=== PATIENT | female | born 1985 | race Caucasian/White ===

== ENCOUNTER 2019-03-07 09:23 | Outpatient (CLI) | payer OTHER ==
--- NOTE | 2019-03-07 10:17 | ULT ---
EXAM: OB ultrasound COMPARISON: None HISTORY: female. Evaluate size, dates, and anatomy. TECHNIQUE: Multiplanar grayscale and color Doppler transabdominal sonographic images are obtained. FINDINGS: There is a single intrauterine gestation in cephalic presentation. Cardiac Doppler demonstr ates heart tones with a heart rate of 155 beats per minute. The placenta is located posteriorly without evidence of placenta previa. There is a normal amount of amniotic fluid with an a mniotic fluid index of 14.1 centimeters. Cervix is difficult to entirely delineate but measures approximately 3 cm in length.. biometry measurements: BPD 5.3 cm -- 22 weeks 1 day HC 18.82 cm -- 21 weeks 1 day AC 16.01 cm -- 21 weeks 1 day FL 3.21 cm -- 20 weeks The estimated gestational age by ultrasound is 21 weeks 1 day with an KAM on07/17/2019. Gestational age by the last menstrual period is 20 weeks 4 days. The estimated weight by ultrasound is 372 g (13 ounces). This represents 53 percentile for feta l weight. A 4 chambered heart is visualized. The cerebellum, visualized portions of the spine, kidneys, u rinary bladder, and cord insertion demonstrate a normal sonographic appearance. A three-vessel cord is not visualized, but there is flow on either side of the urinary bladder sugges ting a three-vessel cord.. No anomalies are seen. IMPRESSION: 1. Single intrauterine gestation in cephalic presentation with heart tones documented. Estimat ed gestational age by ultrasound is 21 weeks and 1 day. 2. Estimated weight is 372 g (13 ounces). 3. Amniotic fluid index is 14.1 centimeters.
== END 2019-03-07 09:24 | disposition home or self-care (01) ==
LOC: BICULT 09:23
PROVIDERS: ATTEND Family Medicine
DX: O09.92 Supervision of high risk pregnancy, unspecified, second trimester (principal); O09.512 Supervision of elderly primigravida, second trimester; Z3A.21 21 weeks gestation of pregnancy
CPT/HCPCS: 76805

== ENCOUNTER 2019-06-21 09:53 | Day surgery (SDC) | payer OTHER ==
[2019-06-21 10:22] VITALS: BP 134/79; TEMP 98.2; BMI 42.5
--- NOTE | 2019-06-21 11:25 | PDOC.EVN ---
Event Note - Event Note Event Note: [facility] oncall Asked to review BPP and NST. This is my review of those items/ This is not a full triage assessment. Indication for BPP and NST: HX CS x3 and GDM. BPP verbal was 8/8 with normal JULIO. NST is reactive at 35 weeks. OK for outpatient care. I have seen her in Triage B
--- NOTE | 2019-06-21 11:37 | ULT ---
ULTRASOUND BIOPHYSICAL PROFILE: DATE: 06/21/2019 HISTORY: 33-year-old female in third trimester of , advanced maternal age. FINDINGS: breathin tone: 2 movement: 2 Amniotic fluid volume: 2 lie: Breech Placenta: Right lateral. No placenta previa. heart rate: 145 bpm JULIO: 12 cm. IMPRESSION: Normal biophysical profile score of 8 out of 8, excluding the nonstress test.
== END 2019-06-21 11:40 | disposition home health service, planned readmission (86) ==
LOC: L&D/OP 09:53
PROVIDERS: ATTEND Family Medicine
DX: O09.523 Supervision of elderly multigravida, third trimester (principal); Z3A.35 35 weeks gestation of pregnancy; Z98.890 Other specified postprocedural states
CPT/HCPCS: 59025; 76819; 99282

== ENCOUNTER 2019-07-05 09:35 | Inpatient (IN) | payer OTHER ==
[2019-07-05 10:52] LABS: #Eosinphils 0.1 thou/uL (0.0-0.7); #Lymphocytes 2.1 thou/uL (1.20-3.40); #Monocytes 0.7 thou/uL (0.11-0.59); %Basophils 0.2 % (0.0-1.0); %Eosinophils 1.6 % (0.0-10.0); %Lymphocytes 23.1 % (21.0-51.0); %Monocytes 7.8 % (0.0-10.0); %Neutrophils 67.3 % (42.0-75.0); Hemoglobin 12.9 g/dL (12.0-16.0); Mean Corpuscular HGB CONC 34.6 g/dL (32.0-36.0); Mean Corpuscular Hemoglobin 29.7 pg (27.0-31.0); Mean Corpuscular Volume 85.9 fL (78.0-98.0); Mean Platelet Volume 7.8 fL (7.4-10.4); Platelet Count 194 thou/uL (130-400); RBC Distribution Width 12.3 % (11.5-14.5); Red Blood Cell (RBC) Count 4.33 mill/uL (4.20-5.40)
[2019-07-05 10:55] LABS: Creatinine, Urine 71.87 mg/dL (47-110)
[2019-07-05 11:17] VITALS: BMI 42.5
[2019-07-05 11:20] LABS: ALT (SGPT) 15 U/L (8-55); AST (SGOT) 14 U/L (5-34); Albumin 3.2 g/dL (3.5-5.0); Alkaline Phosphatase 165 U/L (40-110); Anion Gap 12 mmol/L (10-20); BUN (Urea Nitrogen) 9 mg/dL (7.0-18.7); Bilirubin, Total 0.3 mg/dL (0.2-1.2); Calc. Creatinine Clearance 195 mL/min (70-130); Calcium 9.3 mg/dL (7.8-10.44); Carbon Dioxide 22 mmol/L (22-29); Chloride 106 mmol/L (98-107); Estimated GFR-MDRD Greater than 90; Globulin 3.7 g/dL (2.4-3.5); Glucose 93 mg/dL (70-105); Potassium 3.7 mmol/L (3.5-5.1); Protein, Total 6.9 g/dL (6.0-8.3); Sodium 136 mmol/L (136-145)
[2019-07-05 11:35] LABS: HBSAg Index 0.31 S/CO (0-0.99); HIV (1/2) Antibody/Antigen Non-Reactive (NonReactive); HIV 1/2 INDEX 0.12 S/CO (<1.00); Hep B Surf Ag Non-Reactive S/CO (NonReactive)
[2019-07-05 11:36] LABS: Syphilis Antibody Nonreactive (Nonreactive); Syphilis Antibody Index 0.11 S/CO (<1.00 Non-Reactive)
--- NOTE | 2019-07-05 13:10 | ULT ---
OB ULTRASOUND FOR BIOPHYSICAL PROFILE: Umbilical artery Doppler study performed with Doppler, spectral analysis, and velocities with resisti ve index calculation. INDICATION: Assess well being. FINDINGS: A 37-week 5-day clinical age. BIOPHYSICAL PROFILE: tone: Score 2. breathing: Score 2. movement: Score 2. Amniotic fluid: Score 2. Total Score: 8/8. Position: Breech. Placenta: Anterior. Amniotic fluid: Appears adequate. JULIO is low normal recorded at 8.2 cm. heart rate: 152 b.p.m. UMBILICAL ARTERY DOPPLER: Umbilical artery at insertion: Resistive index: 0.63. Pulsatility index: 1.04. Umbilical artery mid cord: Resistive index: 0.58. Pulsatility index: 0.93. Umbilical artery Doppler at placenta insertion: Resistive index: 0.64. Pulsatility index: 1.11. POS: AGW
[2019-07-05] MEDS ORDERED: Bicitra 30 ML UDCUP ONE (18:18)
[2019-07-05] MEDS ORDERED: Azithromycin 500 MG VIAL ONE (18:20)
[2019-07-05] MEDS ORDERED: Butorphanol Tartrate 1 MG/ML VIAL SLOW IVP PRN (18:21)
[2019-07-05] MEDS ORDERED: Ondansetron PF 4 MG/2 ML Vial IVP PRN ×2 (18:21→18:57)
[2019-07-05] MEDS ORDERED: Promethazine HCl 25 MG/ML VIAL IM PRN ×2 (18:21→18:57)
[2019-07-05] MEDS ORDERED: hydrALAZINE 20 MG/ML VIAL SLOW IVP PRN (18:21)
[2019-07-05] MEDS ORDERED: Ondansetron PF 4 MG/2 ML Vial ONE (18:28)
[2019-07-05] MEDS ORDERED: Oxytocin 10 UNITS/ML VIAL ONE (18:28)
[2019-07-05] MEDS ORDERED: MORPHINE 5 MG/10 ML PF VIAL ONE (18:29)
[2019-07-05] MEDS ORDERED: Bicitra 30 ML UDCUP PO SCH (18:30)
[2019-07-05] MEDS ORDERED: CEFAZOLIN 2 GM in Premix Bag 1 BAG IVPB SCH (18:30)
[2019-07-05] MEDS ORDERED: Azithromycin 500 MG in Sodium Chloride 0.9% 250 ML 250 ML IVPB SCH (18:30)
[2019-07-05] MEDS ORDERED: Lidocaine 1% PF 5 ML VIAL ONE (18:44)
[2019-07-05] MEDS ORDERED: diphenhydrAMINE 50 MG/ML VIAL IVP PRN (18:57)
[2019-07-05] MEDS ORDERED: L&D-Morphine 4 MG/ML VIAL SLOW IVP PRN (18:57)
[2019-07-05] MEDS ORDERED: Naloxone HCl 0.4 mg/ml Vial IVP PRN ×2 (18:57)
[2019-07-05] MEDS ORDERED: HYDROmorphone 2 MG/ML VIAL SLOW IVP PRN (18:57)
[2019-07-05] MEDS ORDERED: Ketorolac Tromethamine 30 MG/ML VIAL IVP PRN (18:57)
[2019-07-05] MEDS ORDERED: Meperidine HCl/PF 25 MG/ML VIAL SLOW IVP PRN (18:57)
[2019-07-05] MEDS ORDERED: Promethazine HCl 25 MG SUPP PR PRN (18:57)
[2019-07-05] MEDS ORDERED: Naloxone HCl 0.4 mg/ml Vial IV PRN (18:57)
[2019-07-05] MEDS ORDERED: Ondansetron HCl/PF 4 MG/2 ML Vial IVP PRN (18:57)
[2019-07-05] MEDS ORDERED: PHENYLEPHRINE-NS 100 MCG/ML 10 ML SYRINGE ONE ×2 (18:58→19:34)
[2019-07-05] MEDS ORDERED: EPHEDRINE 25 MG/5 ML SYRINGE ONE (18:58)
[2019-07-05] MEDS ORDERED: Communication Order-Pharmacy FS SCH (19:00)
[2019-07-05] MEDS ORDERED: Ketorolac Tromethamine 30 MG/ML VIAL IVP SCH (19:00)
[2019-07-05] MEDS ORDERED: Misoprostol 200 MCG TAB ONE (19:14)
[2019-07-05] MEDS ORDERED: Methylergonovine 0.2 MG/ML VIAL ONE (19:14)
[2019-07-05] MEDS ORDERED: Carboprost 250 MCG/ML AMP ONE ×2 (19:14→19:17)
[2019-07-05] MEDS ORDERED: Tranexamic Acid 1,000 MG/10 ML VIAL ONE ×3 (19:17→20:50)
[2019-07-05] MEDS: Lactated Ringer's 1,000 ML IV SCH (20:30)
--- NOTE | 2019-07-05 20:33 | OP ---
DATE OF PROCEDURE: 07/05/2019 TIME OF SERVICE: 193 Please see complete operative note dictated by Dr. Cavanaugh. Briefly, the patient's history was that she was multiparous 37 weeker, pre-R, C-sections x3, presented in labor. She underwent a repeat section with a history of dense adhesions to the anterior abdominal wall. Dr. Cavanaugh encountered adhesions to the rectus abdominis on the way in and performed a low-transverse hysterotomy. After delivering the baby and obtaining cord blood sample, upon removing the placenta, he noted the lower uterine segment to be very thin along the right margin and the placenta to be densely adherent. I was called for intraoperative consultation. When I presented, the placenta had been dissected off pretty well completely except for an area of maybe about 5 cm diameter along the right aspect of the hysterotomy incision just above and lateral to it. I scrubbed in and inspected. I did not really see any vessels coming through the very thin lower uterine segment and did not suspect true invasion, rather more just abnormally adherent placenta. It dissected free and was removed. The uterus was curetted out and noted to be firm. There was not excessive bleeding from the placental bed. I identified the margins of the hysterotomy, which on the right especially were 2-3 cm above the level of the apparent bladder. It was closed from right to left using a running locking #1 Monocryl suture in a single layer. On the left side, the hysterotomy extended down slightly, but did seem to be well above the level of the bladder. It was closed in the usual manner. There were some areas of denuding on the uterine musculature superior to the left side of the hysterotomy from its dissection off the densely adherent rectus and this was rendered hemostatic using running locking Monocryl suture as well as one application of FloSeal with pressure held by a moist lap sponge for 3 minutes. After this was done, reinspection revealed good hemostasis throughout. The uterus was noted to be continually firm. There was no bleeding coming through the hysterotomy and was not boggy. No hemorrhage was suspected. Case was turned back over to Dr. Cavanaugh as the rectus was easily identifiable as well as the fascia and he continued and finished the case, closing the fascia . I remain available for consultation if any signs or symptoms of anemia or continued hemorrhage are noted. Job ID: [id number]
[2019-07-05] MEDS ORDERED: NS / Oxytocin 40 units/1000ml 1,000 ML ONE (21:55)
[2019-07-06 02:44] LABS: Mean Corpuscular HGB CONC 34.6 g/dL (32.0-36.0); Mean Corpuscular Hemoglobin 29.7 pg (27.0-31.0); Mean Corpuscular Volume 85.8 fL (78.0-98.0); Platelet Count 181 thou/uL (130-400); RBC Distribution Width 12.4 % (11.5-14.5); Red Blood Cell (RBC) Count 3.02 mill/uL (4.20-5.40); White Blood Cell (WBC) Count 23.5 thou/uL (4.8-10.8)
[2019-07-06] MEDS ORDERED: hydrALAZINE 20 MG/ML VIAL SLOW IVP PRN (02:56)
[2019-07-06] MEDS ORDERED: Bisacodyl 10 MG SUPP PR PRN (02:56)
[2019-07-06] MEDS ORDERED: Promethazine HCl 25 MG/ML VIAL IM PRN (02:56)
[2019-07-06] MEDS ORDERED: NS / Oxytocin 40 units/1000ml 1,000 ML IV SCH (02:56)
[2019-07-06] MEDS ORDERED: Acetaminophen 325 MG TAB PO PRN (02:56)
[2019-07-06] MEDS ORDERED: Meperidine HCl/PF 25 MG/ML VIAL IM PRN (02:56)
[2019-07-06] MEDS ORDERED: HYDROcodone/Acetaminophen 5/325 mg Tablet PO PRN (02:56)
[2019-07-06] MEDS ORDERED: Adacel (T-DAP) 0.5 ML SYRINGE IM ONE (02:56)
[2019-07-06] MEDS ORDERED: Ondansetron PF 4 MG/2 ML Vial IVP PRN (02:56)
[2019-07-06] MEDS ORDERED: diphenhydrAMINE 25 MG CAP PO PRN (02:56)
[2019-07-06] MEDS ORDERED: Lanolin Ointment 7 GM TUBE TOP PRN (02:56)
[2019-07-06] MEDS ORDERED: Docusate Calcium (SURFAK) 240 MG CAP PO SCH (03:45)
[2019-07-06] MEDS ORDERED: Sodium Chloride 0.9% 10 ML ONE ×2 (03:59→11:42)
[2019-07-06] MEDS: Lactated Ringer's 1,000 ML IV SCH (05:55)
[2019-07-06] MEDS: Ketorolac Tromethamine 30 MG/ML VIAL IVP SCH ×2 (06:20→11:46)
[2019-07-06] MEDS ORDERED: Lactated Ringer's 1,000 ML IV SCH (08:30)
[2019-07-06 08:37] LABS: Hemoglobin 7.5 g/dL (12.0-16.0); Mean Corpuscular HGB CONC 34.4 g/dL (32.0-36.0); Mean Corpuscular Hemoglobin 29.8 pg (27.0-31.0); Mean Corpuscular Volume 86.6 fL (78.0-98.0); Mean Platelet Volume 8.1 fL (7.4-10.4); Platelet Count 154 thou/uL (130-400); RBC Distribution Width 12.5 % (11.5-14.5); Red Blood Cell (RBC) Count 2.53 mill/uL (4.20-5.40); White Blood Cell (WBC) Count 14.9 thou/uL (4.8-10.8)
[2019-07-06] MEDS ORDERED: Ketorolac Tromethamine 30 MG/ML VIAL IVP SCH (09:00)
[2019-07-06] MEDS: Prenatal Vitamin 1 TAB PO SCH (09:25)
[2019-07-06] MEDS: Ferrous Sulfate 325 MG TAB PO SCH ×2 (09:25→16:54)
[2019-07-06] MEDS: Simethicone Chewable 80 MG TAB PO PRN ×2 (15:37→20:02)
[2019-07-06] MEDS: Ibuprofen 800 MG TAB PO SCH (16:54)
[2019-07-06] MEDS ORDERED: Ibuprofen 800 MG TAB PO SCH (18:00)
[2019-07-06] MEDS: HYDROcodone/Acetaminophen 5/325 mg Tablet PO PRN (20:01)
[2019-07-06] MEDS: Docusate Calcium (SURFAK) 240 MG CAP PO SCH (20:02)
[2019-07-07] MEDS: HYDROcodone/Acetaminophen 5/325 mg Tablet PO PRN ×4 (00:26→13:45)
[2019-07-07] MEDS: Ibuprofen 800 MG TAB PO SCH ×3 (00:26→17:10)
[2019-07-07] MEDS: Ferrous Sulfate 325 MG TAB PO SCH (08:49)
[2019-07-07] MEDS: Docusate Calcium (SURFAK) 240 MG CAP PO SCH (08:49)
[2019-07-07] MEDS: Prenatal Vitamin 1 TAB PO SCH (08:49)
[2019-07-07] MEDS: Simethicone Chewable 80 MG TAB PO PRN (08:56)
[2019-07-07 15:37] VITALS: BP 129/69; TEMP 97.9
--- NOTE | 2019-07-09 08:33 | OP ---
DATE OF PROCEDURE: 07/05/2019 PREOPERATIVE DIAGNOSES: 1. Term . 2. Previous x3, with spontaneous onset of labor. 3. Gestational diabetes. 4. Gestational hypertension. 5. Advanced maternal age. POSTOPERATIVE DIAGNOSES: 1. Term . 2. Previous x3, with spontaneous onset of labor. 3. Gestational diabetes. 4. Gestational hypertension. 5. Advanced maternal age. 6. Pelvic adhesive disease. PROCEDURE PERFORMED: Repeat low cervical transverse . EDUCATION REP: Dr. Dupont. INTRAOPERATIVE CONSULTATION: Dr. Vasquez. INDICATIONS: This is a 33-year-old white female G5, P3, admitted for elevated blood pressures noted in the office and during her period of observation began yovany regularly and painfully. DESCRIPTION OF PROCEDURE: After informed consent was obtained from the patient, she was taken to the operating room, where spinal anesthesia was administered. She was prepped and draped in the usual sterile fashion. A Pfannenstiel incision was created over her previous scar and carried down to the fascia. Skin bleeders were cauterized with the Bovie. The fascia was incised transversely with the scalpel as dense scar tissue at the fascia was difficult to incise with scissors. The superior fascial segment was grasped with Atiya's and elevated and the underlying rectus muscles were dissected free also with a combination of scissors and a scalpel. This was repeated with the inferior fascial segment. The rectus muscles were elevated with a Atiya and incised sharply with Monroy scissors. After entry into the abdomen, digital exploration revealed there were dense adhesions between the uterine fundus and anterior uterus and the rectus muscles from the midline to the left lateral edge of the uterus. The right side was also adhesed, although these adhesions were looser and able to be taken down with the Bovie. The adhesions between the rectus muscles and the left side of the uterus were meticulously taken down with a combination of Metzenbaum scissors and the Bovie. Once this was accomplished enough where it was felt that delivery could be accomplished easily, the uterus was entered in a low-transverse fashion with a clean #10 scalpel blade. The rectus muscles were incised partially on the left side of the uterus, where they could not be dissected away. Hysterotomy was made with a scalpel and extended superolaterally with blunt dissection. Membranes were ruptured with an Allis and clear amniotic fluid was encountered. The was encountered in clovis breech presentation and was delivered uneventfully and atraumatically. The cord was clamped x2 and a vigorous female was handed to the staff in attendance. Cord blood was obtained. The uterus was massaged externally and then the placenta was found to be unusually adherent to the right superior corner of the hysterotomy. Attempts at gentle manual extraction were unsuccessful. At this point, Dr. Vasquez was consulted. Preparations for fluid resuscitation were instituted. A second IV was placed, and blood had been previously typed and crossed. Upon Dr. Vasquez's arrival, the placenta was carefully dissected away from the corner of the uterus and where there had been previously moderate bleeding subsequent to placenta removal, there was only minimal bleeding noted. Due to adhesions, the uterus could not be exteriorized, so the uterus was repaired in situ with a running locking suture of [address] Vasquez. Bleeding along the incision line was made hemostatic with FloSeal, also applied by Dr. Vasquez. After carefully inspecting the visible uterus and rectus muscles for hemostasis, the fascia was repaired with a running locking suture of 0 PDS. Three interrupted sutures of 3-0 Vicryl were placed in the subdermal layer to reapproximate the skin which was closed with skin roxy. Sponge and instrument counts were correct x3. Wound VAC was applied at the end of the procedure. FINDINGS: Viable female . Apgars were nine and nine at 1 and 5 minutes respectively. QUANTITATIVE BLOOD LOSS: 990 mL. Job ID: [id number]
== END 2019-07-07 17:11 | disposition home or self-care (01) | DRG 787 ==
LOC: L&D/OP 09:35 → L&D 18:06 → 3SW 07-06 04:13
PROVIDERS: ADMIT Family Medicine; ATTEND Family Medicine
PROC: 10D00Z1 Extraction of Products of Conception, Low, Open Approach (ICD-10-PCS; principal; 2019-07-05)
PROC: 30233N1 Transfusion of Nonautologous Red Blood Cells into Peripheral Vein, Percutaneous Approach (ICD-10-PCS; 2019-07-06)
DX: O34.211 Maternal care for low transverse scar from previous cesarean delivery (principal); D62 Acute posthemorrhagic anemia; O72.1 Other immediate postpartum hemorrhage; Z3A.37 37 weeks gestation of pregnancy; Z37.0 Single live birth; O99.214 Obesity complicating childbirth; E66.9 Obesity, unspecified; O24.420 Gestational diabetes mellitus in childbirth, diet controlled; O13.9 Gestational [pregnancy-induced] hypertension without significant proteinuria, unspecified trimester; O99.03 Anemia complicating the puerperium
CPT/HCPCS: 36415; 36430; 51702; 76819; 80053; 82570; 84156; 85025; 85027; 86780; 86850; 86900; 86901; 87340; 87389; 88307; 93976; 99285; J0456; J0690; J1885; J2001; J2210; J2274; J2405; J2590; J3490; P9016

== ENCOUNTER 2021-12-19 13:53 | Emergency (ER) | payer OTHER ==
[2021-12-19 15:20] LABS: #Basophils 0.1 thou/uL (0.0-0.2); #Eosinphils 0.2 thou/uL (0.0-0.7); #Lymphocytes 2.6 thou/uL (1.20-3.40); #Monocytes 0.6 thou/uL (0.11-0.59); #Neutrophils 6.2 thou/uL (1.40-6.50); %Basophils 0.6 % (0.0-1.0); %Eosinophils 2.4 % (0.0-10.0); %Lymphocytes 26.7 % (21.0-51.0); %Monocytes 6.2 % (0.0-10.0); %Neutrophils 64.2 % (42.0-75.0); Hemoglobin 13.4 g/dL (12.0-16.0); Mean Corpuscular HGB CONC 35.4 g/dL (32.0-36.0); Mean Corpuscular Volume 90.3 fL (78.0-98.0); Platelet Count 337 thou/uL (130-400); RBC Distribution Width 11.5 % (11.5-14.5); White Blood Cell (WBC) Count 9.7 thou/uL (4.8-10.8)
[2021-12-19 15:27] LABS: BHCG - Serum Negative (NEGATIVE); Pregs Control Background? CLEAR/WHITE (CLR/WHITE); Pregs Control Bar Appear? YES (CONTROL BAR)
[2021-12-19 15:48] LABS: ALT (SGPT) 34 U/L (8-55); AST (SGOT) 28 U/L (5-34); Albumin 4.1 g/dL (3.5-5.0); Alkaline Phosphatase 67 U/L (40-110); Anion Gap 12 mmol/L (10-20); BUN (Urea Nitrogen) 8 mg/dL (7.0-18.7); Bilirubin, Total 0.3 mg/dL (0.2-1.2); Calc. Creatinine Clearance 0 mL/min (70-130); Calcium 9.1 mg/dL (7.8-10.44); Carbon Dioxide 24 mmol/L (22-29); Chloride 106 mmol/L (98-107); Estimated GFR 98; Globulin 3.8 g/dL (2.4-3.5); Glucose 113 mg/dL (70-105); Potassium 3.9 mmol/L (3.5-5.1); Protein, Total 7.9 g/dL (6.0-8.3); Sodium 138 mmol/L (136-145)
[2021-12-19] MEDS ORDERED: Ketorolac Tromethamine 30 MG/ML VIAL ONE (17:58)
[2021-12-19] MEDS ORDERED: predniSONE 20 MG TAB ONE (17:58)
== END 2021-12-19 18:23 | disposition home or self-care (01) ==
LOC: ERS 13:53
DX: M79.18 Myalgia, other site (principal); R25.2 Cramp and spasm
CPT/HCPCS: 36415; 71045; 80053; 84484; 84703; 85025; 93005; 96372; J1885; J7512